=== PATIENT | female | born 1950 | race Caucasian/White ===

== ENCOUNTER 2019-12-25 06:57 | Day surgery (SDC) | payer MEDICARE, BC ==
[2019-12-19 16:52] LABS: BASOPHILS # (AUTO) 0.1 X10'3 (0-0.2); BASOPHILS % (AUTO) 0.9 % (0-1); EOSINOPHILS # (AUTO) 0.1 X10'3 (0-0.9); EOSINOPHILS % (AUTO) 1.9 % (0-6); LYMPHOCYTES # (AUTO) 2.3 X10'3 (1.1-4.8); LYMPHOCYTES % (AUTO) 33.4 % (21-51); MEAN CORPUSCULAR VOLUME 97.2 FL (78-98); MEAN PLATELET VOLUME 7.9 FL (7.4-10.4); MONOCYTES # (AUTO) 0.6 X10'3 (0-0.9); MONOCYTES % (AUTO) 8.4 % (2-12); NEUTROPHILS # (AUTO) 3.8 X10'3 (1.8-7.7); NEUTROPHILS % (AUTO) 55.4 % (42-75); PRE OP HEMATOCRIT 40.9 % (35.0-45.0); PRE OP HEMOGLOBIN 13.9 g/dL (12.0-16.0); PRE OP PLATELET COUNT 264 X10'3 (140-440); RED BLOOD COUNT 4.21 X10'6 (4.20-5.60); RED CELL DISTRIBUTION WIDTH 13.8 % (11.5-14.5)
[2019-12-19 17:04] LABS: ALBUMIN 3.6 G/DL (3.4-5.0); ALBUMIN/GLOBULIN RATIO 0.9 (1.1-1.5); ALKALINE PHOSPHATASE 87 IU/L (46-116); BLOOD UREA NITROGEN 19 MG/DL (7-18); BUN/CREATININE RATIO 18.6 (6.6-38.0); CALCIUM 8.9 MG/DL (8.5-10.1); CHLORIDE 106 MMOL/L (99-107); CREATININE 1.02 MG/DL (0.40-0.90); PRE OP ALT 29 U/L (30-65); PRE OP ANION GAP 6 (8-16); PRE OP AST 18 U/L (10-37); PRE OP BILIRUB, TOTAL 0.5 MG/DL (0.0-1.0); PRE OP GLUCOSE 90 MG/DL (70-104); PRE OP POTASSIUM 3.7 MMOL/L (3.4-5.1); PRE OP SODIUM 142 MMOL/L (135-145); TOTAL CARBON DIOXIDE 29.6 MMOL/L (24-32); TOTAL PROTEIN 7.5 G/DL (6.4-8.2); eGFR 54 ML/MIN
[2019-12-25] VITALS (21 sets, daily range): BP systolic 83–119; BP diastolic 45–87
[~2019-12-25] VITALS: Ht 170.2 cm; Wt 77.1 kg
[~2019-12-25 06:57] MED LIST: HYDROcodone/acetaminophen 10/325mg tab PO PRN; HYDROmorphone 1 mg/ml syringe IV PRN; HYDROmorphone inj. 0.5 MG/0.5 ML DISP.SYRIN IV PRN; MIDAZolam 5mg/5ml vial ONE; OMEP-50 PO; TRANEXAMIC ACID 1 GM IN NACL,ISO-OS 100 ML IV ONE; VALA100031 PO; acetaminophen 325mg tablet PO ONE; acetaminophen 325mg tablet PO PRN; bisacodyl 10mg suppository rectal RC PRN; ceFAZolin 2gm in dextrose, iso 50 ML IV ONE; celeCOXIB 100mg capsule PO ONE; diphenhydrAMINE 25mg capsule PO PRN; famotidine 20mg tablet PO ONE; fentaNYL/PF 50MCG/1 ML 2ML syringe ONE; gabapentin 300mg capsule PO ONE; ketorolac trometh. 30mg/ml inj. ONE; magnesium hydroxide 30ml (MOM) UD suspension PO PRN; metoclopramide 5 mg/ml inj IV ONE; ondansetron/PF 4mg/2ml inj IV PRN; oxyCODONE SR 10mg (sust. release) tab -2 tabs (20mg) PO ONE; potassium cl 20mEq in 1/2 NS 1,000 ML IV SCH; ringers solution, lacted 1,000 ML IV SCH; vancomycin 1,500 MG in NS 300ml IV soln IV ONE
[2019-12-25] MEDS ORDERED: ondansetron/PF 4mg/2ml inj IV PRN (07:50)
[2019-12-25] MEDS ORDERED: meperidine/PF 25mg/ml syringe IV PRN ×3 (07:50)
[2019-12-25] MEDS ORDERED: morphine 4 MG/ML inj SYRINge IV PRN (07:50)
[2019-12-25] MEDS ORDERED: ringers solution, lacted 1,000 ML IV SCH (07:50)
[2019-12-25] MEDS ORDERED: proCHLORperazine 10 MG/2 ml inj IV PRN (07:50)
[2019-12-25] MEDS ORDERED: morphine 2 MG/ML inj. syringe IV PRN (07:50)
[2019-12-25] MEDS ORDERED: gabapentin 300mg capsule PO SCH (08:00)
[2019-12-25] MEDS: multivitamins, therapeutics tablet PO SCH (08:00)
[2019-12-25] MEDS: ascorbic acid 500mg tablet PO SCH ×2 (08:00→20:14)
[2019-12-25] MEDS ORDERED: vancomycin 1,000mg inj ONE (08:56)
[2019-12-25] MEDS ORDERED: cloNIDine hcl/PF 100mcg/ml inj ONE (08:56)
[2019-12-25] MEDS ORDERED: ketorolac trometh. 30mg/ml inj. ONE (08:56)
[2019-12-25] MEDS ORDERED: epiNEPHrine 1 mg/ml inj ONE (08:56)
[2019-12-25] MEDS ORDERED: ROPIVAcaine 0.5% (5mg/ml) 30ml vial ONE (08:57)
[2019-12-25] MEDS ORDERED: fentaNYL/PF 50MCG/1 ML 2ML syringe ONE (09:05)
[2019-12-25] MEDS ORDERED: MIDAZolam 5mg/5ml vial ONE (09:06)
--- NOTE | 2019-12-25 10:30 | NUR ---
Received from OR via ORTHO BED, accompanied by Anesthesiologist DR HERNANDEZ and report given by Anesthesiolgist. PT PLACED ON O2 AND MONITOR, S/P RIGHT HIP ARTHROPLASTY, SAB, PT AWAKE, GOOD PEDAL PULSE BILAT, MOVES LEFT LOWER EXTREMITY, HAS FEELING TO MID THIGH AREA,DENIES ANY PAIN OR NAUSEA AT THIS TIME, WILL CONT TO ASSESS.
--- NOTE | 2019-12-25 11:50 | NUR ---
Patient in room . I have received report from Nickie in recovery and had the opportunity to ask questions and assume patient care.
--- NOTE | 2019-12-25 12:10 | NUR ---
Report called to receiving nurse. Transferred via ORTHO BED TO ROOM 4023A Belongings . Special Issues communicated to receiving nurse.
[2019-12-25] MEDS: aspirin 325mg tablet PO SCH (13:59)
[2019-12-25] MEDS: gabapentin 300mg capsule PO SCH ×2 (13:59→20:14)
[2019-12-25] MEDS: ceFAZolin 2gm in dextrose, iso 50 ML IV SCH (16:19)
[2019-12-25] MEDS ORDERED: tranexamic acid inj. 770 MG in normal saline 100ml IV soln 100 ML IV ONE (16:30)
[2019-12-25] MEDS: acyclovir 200 MG capsule PO SCH ×2 (17:53→22:04)
--- NOTE | 2019-12-25 18:32 | NUR ---
Problems reprioritized. Patient report given, questions answered & plan of care reviewed with Constance Wilson
[2019-12-25] MEDS ORDERED: vancomycin/NS 1 GM ADD-VANTAGE 250 ML IV SCH (20:00)
[2019-12-25] MEDS ORDERED: sennosides 8.6mg tablet PO SCH (21:00)
[2019-12-26] MEDS: ceFAZolin 2gm in dextrose, iso 50 ML IV SCH (00:06)
[2019-12-26 02:00] VITALS: BP 108/66
[2019-12-26] MEDS: acyclovir 200 MG capsule PO SCH ×2 (05:03→10:32)
[2019-12-26 06:00] VITALS: BP 92/53
[2019-12-26] MEDS ORDERED: ASPI-1 PO (06:20)
[2019-12-26 06:47] LABS: BASOPHILS % (AUTO) 0.7 % (0-1); EOSINOPHILS # (AUTO) 0.1 X10'3 (0-0.9); EOSINOPHILS % (AUTO) 1.8 % (0-6); HEMATOCRIT 34.6 % (35.0-45.0); HEMOGLOBIN 11.7 g/dl (12.0-16.0); LYMPHOCYTES # (AUTO) 1.2 X10'3 (1.1-4.8); LYMPHOCYTES % (AUTO) 21.9 % (21-51); MEAN CORPUSCULAR HEMOGLOBIN 33.2 PG (27.0-31.0); MEAN CORPUSCULAR HGB CONC 33.8 g/dL (33.0-36.5); MEAN CORPUSCULAR VOLUME 98.2 FL (78-98); MONOCYTES # (AUTO) 0.4 X10'3 (0-0.9); MONOCYTES % (AUTO) 8.1 % (2-12); NEUTROPHILS # (AUTO) 3.7 X10'3 (1.8-7.7); NEUTROPHILS % (AUTO) 67.5 % (42-75); PLATELET COUNT 200 X10'3 (140-440); RED BLOOD COUNT 3.52 X10'6 (4.20-5.60); RED CELL DISTRIBUTION WIDTH 13.9 % (11.5-14.5); WHITE BLOOD COUNT 5.4 X10'3 (4.5-11.0)
--- NOTE | 2019-12-26 06:50 | NUR ---
Patient in room ORTHO 4021. I have received report from RONEN ALEXIS and had the opportunity to ask questions and assume patient care.
--- NOTE | 2019-12-26 06:50 | NUR ---
Report given to Amena HARDWICK.
[2019-12-26 07:00] LABS: ANION GAP 4 (8-16); CHLORIDE 108 MMOL/L (99-107); POTASSIUM 4.2 MMOL/L (3.5-5.1); SODIUM 141 MMOL/L (135-145); TOTAL CARBON DIOXIDE 29.3 MMOL/L (24-32)
--- NOTE | 2019-12-26 07:20 | NUR ---
Patient in room ORTHO 4021. I have received report from Amena and had the opportunity to ask questions and assume patient care.
[2019-12-26] MEDS ORDERED: pantoprazole 40mg Tablet.DR PO SCH (07:30)
--- NOTE | 2019-12-26 07:34 | NUR ---
Problems reprioritized. Patient report given, questions answered & plan of care reviewed with RONEN Bacon.
[2019-12-26] MEDS: ascorbic acid 500mg tablet PO SCH (08:53)
[2019-12-26] MEDS: aspirin 325mg tablet PO SCH (08:53)
[2019-12-26] MEDS: multivitamins, therapeutics tablet PO SCH (08:53)
[2019-12-26] MEDS: gabapentin 300mg capsule PO SCH ×2 (08:59→12:35)
--- NOTE | 2019-12-26 10:05 | NUR ---
Case management DC follow up: TAMIA/CHETAN re post DC status RTHA, questions, concerns Addendum: 12/26/19 at 1033 by Isha BROCK RN Student Medication Administration: For this medication-pass time frame, all medication were reviewed, dispensed, administered and documented per hospital policy by Jennifer ROBBINS Instructor.
--- NOTE | 2019-12-26 10:33 | NUR ---
Student Medication Administration: For this medication-pass time frame, all medication were reviewed, dispensed, administered and documented per hospital policy by Jennifer ROBBINS Instructor.
[2019-12-26] MEDS ORDERED: HYDROcodone/acetaminophen 5mg/325mg tablet PO ONE (11:10)
--- NOTE | 2019-12-26 11:51 | NUR ---
chart review and medication admin done by student with supervision by licensed personnel
--- NOTE | 2019-12-26 13:15 | NUR ---
Reviewed discharge instructions with pt. Pt verbalized understanding. Pt dressed herself, gathered all of her belongings and was wheeled downstairs to be driven home by her family. Pt was sent with her powder packs and island dressings.
[2019-12-26] MEDS ORDERED: celeCOXIB 100mg capsule PO SCH (20:00)
== END 2019-12-26 13:15 | disposition home or self-care (01) ==
LOC: PAS 06:57 → ORTHO 4S 07:00 → PAS 12-26 13:15
PROVIDERS: ATTEND Orthopaedic Surgery
DX: M16.11 Unilateral primary osteoarthritis, right hip (principal); K21.9 Gastro-esophageal reflux disease without esophagitis; D50.0 Iron deficiency anemia secondary to blood loss (chronic); Z11.59 Encounter for screening for other viral diseases; Z79.899 Other long term (current) drug therapy; Z72.89 Other problems related to lifestyle; Z98.890 Other specified postprocedural states; Z90.710 Acquired absence of both cervix and uterus; Z96.651 Presence of right artificial knee joint
CPT/HCPCS: 27130; 36415; 71046; 72170; 80051; 80053; 82948; 85025; 86885; 86900; 86901; 87081; 93005; 97116; 97161; 97530; C1776; J0171; J0735; J1885; J2250; J2765; J3010; J3370; J7040; J7120; U0003; A4215; A4615; A7000; G0378; J2795; J3480